=== PATIENT | male | born 1995 | race Native Hawaiian/Other Pacific Islander ===

== ENCOUNTER 2019-11-01 08:49 | Emergency (ER) | payer OTHER ==
[~2019-11-01] VITALS: Ht 178 cm; Wt 70.9 kg
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
[2019-11-01 09:27] LABS: BASOPHILS % (AUTO) 1 % (0-10); EOSINOPHILS # (AUTO) 0.4 10^3/uL (0.0-0.3); EOSINOPHILS % (AUTO) 6 % (0-10); HEMATOCRIT 50 % (40-54); HEMOGLOBIN 17.6 G/DL (13.3-17.7); LYMPHOCYTES # (AUTO) 2.3 X 10^3 (1.0-4.0); LYMPHOCYTES % (AUTO) 36 % (12-44); MEAN CORPUSCULAR HEMOGLOBIN 33 PG (25-34); MEAN CORPUSCULAR HGB CONC 36 G/DL (32-36); MEAN CORPUSCULAR VOLUME 93 FL (80-99); MEAN PLATELET VOLUME 8.6 FL (7.4-10.4); MONOCYTES # (AUTO) 0.5 X 10^3 (0.0-1.0); MONOCYTES % (AUTO) 7 % (0-12); NEUTROPHILS # (AUTO) 3.2 X 10^3 (1.8-7.8); NEUTROPHILS % (AUTO) 50 % (42-75); PLATELET COUNT 240 10^3/uL (130-400); RED CELL DISTRIBUTION WIDTH 13.2 % (10.0-14.5); WHITE BLOOD COUNT 6.3 10^3/uL (4.3-11.0)
[2019-11-01 09:46] LABS: ALANINE AMINOTRANSFERASE 35 U/L (0-55); ALBUMIN 4.8 GM/DL (3.2-4.5); ALKALINE PHOSPHATASE 65 U/L (40-136); BILIRUBIN,TOTAL 0.3 MG/DL (0.1-1.0); BUN/CREATININE RATIO 11; CALCIUM 8.7 MG/DL (8.5-10.1); CARBON DIOXIDE 19 MMOL/L (21-32); CHLORIDE 108 MMOL/L (98-107); CREATININE SERUM 1.11 MG/DL (0.60-1.30); GFR ESTIMATED > 60; GLUCOSE 88 MG/DL (70-105); POTASSIUM 3.8 MMOL/L (3.6-5.0); SODIUM 142 MMOL/L (135-145)
--- NOTE | 2019-11-01 09:50 | Diagnostic Imaging Report ---
INDICATION: Trauma, chest pain 6 views of the chest and bilateral ribs were obtained. The heart size and vascularity are normal. The lungs are clear. There is no effusion or pneumothorax. No rib fracture or other bony abnormality is seen. IMPRESSION: Normal chest and ribs. Dictated by: Dictated on workstation # [id number]
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
--- NOTE | 2019-11-01 09:52 | Diagnostic Imaging Report ---
PROCEDURE: CT head and CT cervical spine without contrast. TECHNIQUE: Multiple contiguous axial images were obtained through the brain and cervical spine without the use of intravenous contrast. Sagittal and coronal reformations through the cervical spine were then performed. Auto Exposure Controls were utilized during the CT exam to meet ALARA standards for radiation dose reduction. INDICATION: Trauma, head and neck pain The ventricles are normal in size, shape and position. There is no acute parenchymal hemorrhage, edema or mass. There is no extra-axial mass or hemorrhage. There is no skull fracture. There is normal height and alignment of the cervical vertebral bodies. Disc spaces are well-maintained. There is no spinal canal encroachment. No fracture or other acute abnormality is seen. IMPRESSION: 1. Normal CT of the head and cervical spine. Dictated by: Dictated on workstation # [id number]
--- NOTE | 2019-11-01 10:35 | NUR ---
TO ROOM PATIENT SLEEPING AWAKENED INFORMED PATIENT THAT DR WOULD REVIEW HIS TEST BUT WITH EMERGENCY AT PRESENT.
--- NOTE | 2019-11-01 11:20 | NUR ---
TO ROOM PATIENT SLEEPING AWAKENED EASILY
[2019-11-01 11:50] VITALS: BP 112/66
== END 2019-11-01 11:50 | disposition home or self-care (01) ==
LOC: ER 08:50
DX: S06.0X1A Concussion with loss of consciousness of 30 minutes or less, initial encounter (principal); S20.212A Contusion of left front wall of thorax, initial encounter; S20.211A Contusion of right front wall of thorax, initial encounter; S80.212A Abrasion, left knee, initial encounter; V47.5XXA Car driver injured in collision with fixed or stationary object in traffic accident, initial encounter
CPT/HCPCS: 70450; 71111; 72125; 73562; 80053; 84484; 85025; 93005; 99284; G0480; 36415; 80320